=== PATIENT | female | born 1945 | race Caucasian/White ===

== ENCOUNTER → 2017-10-24 09:18 | Outpatient (CLI) | payer MEDICARE, BC, SELFPAY ==
[2017-10-24 10:29] LABS: Basophils % 0.4 % (0.1-2.0); Eosinophils # 0.3 K/mm3 (0.0-0.4); Eosinophils % 5.8 % (0.1-12.0); Hematocrit 32.9 % (37.0-47.0); Hemoglobin 10.7 g/dL (12.2-16.2); Lymphocytes # 1.4 K/mm3 (0.7-4.5); Lymphocytes % 28.7 K/mm3 (10-50); Mean Corpuscular HGB Conc 32.5 g/dL (31.8-35.4); Mean Corpuscular Volume 82.8 fl (81-99); Mean Platelet Volume 6.9 fl (7.4-10.4); Monocytes # 0.2 K/mm3 (0.1-1.0); Monocytes % 4.5 % (1.7-9.3); Neutrophils # 2.9 K/mm3 (1.8-7.8); Neutrophils % 60.6 % (37.0-80.0); Platelet Count 309 K/mm3 (142-424); Red Blood Count 3.97 M/mm3 (4.20-5.40); Red Cell Distribution Width 14.4 % (11.5-17.5); White Blood Count 4.8 K/mm3 (4.8-10.8)
[2017-10-24 10:50] LABS: Alanine Aminotransferase 28 U/L (12-78); Albumin Level 3.3 gm/dL (3.4-5.0); Albumin/Globulin Ratio 0.9 (1.1-1.8); Alkaline Phosphatase 97 U/L (46-116); Anion Gap 11.9 mEq/L (5-15); Aspartate Amino Transferase 14 U/L (15-37); Bilirubin,Total 0.3 mg/dL (0.2-1.0); Blood Urea Nitrogen 20 mg/dL (7-18); Calcium 9.6 mg/dL (8.5-10.1); Carbon Dioxide 28 mmol/L (21.0-32.0); Chloride 104 mmol/L (98-107); Chol/HDL Ratio 2.3 (1-3.5); Cholesterol 132 mg/dL (140-200); Creatinine,Serum 1.04 mg/dL (0.55-1.02); Estimated Glomerular Filt Rate 52 ml/min (>60); GFR (African American) 63 ML/MIN (>60); Globulin 3.6 gm/dl (1.3-3.2); Glucose 121 mg/dL (74-106); HDL Cholesterol 58 mg/dL (29-89); LDL Cholesterol 58 mg/dL (0-130); Magnesium 1.7 mg/dL (1.4-2.2); Potassium 4.9 mmoL/L (3.5-5.1); Sodium 139 mmol/L (136-145); Total Protein,Serum 6.9 gm/dL (6.4-8.2); Triglycerides 82 mg/dL (30-200); VLDL Cholesterol 16 mg/dL (0-40)
[2017-10-24 11:06] LABS: Thyroid Stimulating Hormone < 0.01 uIU/ml (0.358-3.740)
--- NOTE | 2017-10-24 11:28 | CT_ITS ---
CT abdomen pelvis w con CLINICAL INDICATION: Left lower quadrant pain, diarrhea, hematuria ITS.REASON: LLQ PAIN, DIARRHEA ORDERING PHYSICIAN: Lilly Cuellar PATIENT AGE: 71 years COMPARISON: None TECHNIQUE: Axial images obtained with sagittal and coronal reformats. All CT scans at the facility use one or more dose reduction, viz: automated exposure control, ma/kV adjustment per patient size (including targeted exams where dose is matched to indication, i.e. head), or iterative reconstruction technique. PROCEDURE: Oral Contrast: Redicat IV Contrast: 75 mL's of Isovue-370. FINDINGS: The lung bases are clear. Small calcific density is present in the left hepatic lobe segment 4. The liver is otherwise unremarkable. There is a gallstone present at 9 mm. No biliary dilatation. The spleen, adrenal glands, and pancreas are unremarkable. There is severe right-sided hydronephrosis secondary to UPJ obstruction.. There is severe cortical thinning of the right kidney on the right greater along its inferior aspect. Contrast is excreted from the right kidney however. Minimal prominence of the left renal pelvis. No ureteral or renal calculi. There is diffuse diverticulosis of the entire colon. There is minimal stranding of the pericolic fat in the left lower quadrant around a small thickened area of sigmoid colon consistent with mild acute diverticulitis. No evidence of abscess or perforation. Prior appendectomy. No obstruction or free air. No pelvic mass or abnormal fluid collection. IMPRESSION: 1. Acute noncomplicated diverticulitis of the sigmoid colon. There is focal bowel wall thickening with mild stranding of the pericolic fat in this region. Follow-up is recommended as neoplasm could have a similar appearance. 2. Pancolonic diverticulosis. 3. Severe right hydronephrosis secondary to UPJ obstruction.
[2017-10-25 18:42] LABS: Vitamin B12 641 pg/mL (232-1245)
== END ==
PROVIDERS: PCP Physician Assistant; Visit Provider Physician Assistant
DX: R10.32 Left lower quadrant pain (principal); R19.7 Diarrhea, unspecified; E03.9 Hypothyroidism, unspecified; E78.5 Hyperlipidemia, unspecified; R53.83 Other fatigue; E83.42 Hypomagnesemia
CPT/HCPCS: 36415; 74177; 80053; 80061; 82607; 83735; 84439; 84443; 85025; Q9967

== ENCOUNTER → 2017-10-30 07:54 | Outpatient (CLI) | payer MEDICARE, BC, SELFPAY ==
--- NOTE | 2017-10-30 08:17 | CT_ITS ---
CT angio head INDICATION: Severe headache ITS.REASON: HEADACHE, ABNORMAL MRI ORDERING PHYSICIAN: Eliza Daley MD PATIENT AGE: 71 years COMPARISON: 08/27/2017 TECHNIQUE: Axial images are obtained following the bolus administration 100 mL's of Isovue-370 contrast. Sagittal, coronal, and 3-D no free air or reformatted images are reviewed as well. All CT scans at the facility use one or more dose reduction, viz: automated exposure control, ma/kV adjustment per patient size (including targeted exams where dose is matched to indication, i.e. head), or iterative reconstruction technique. FINDINGS: No aneurysm, arteriovenous malformation, or major intracranial occlusive process evident. There is a persistent origin of the right posterior cerebral artery as a normal variant. The right vertebral artery is dominant. No enhancing lesions evident. Delayed images show no evidence of sinus thrombosis IMPRESSION: Negative CTA of the brain Incidental note made of persistent origin of the right posterior cerebral artery is a normal variant
== END ==
PROVIDERS: PCP Physician Assistant; Visit Provider Specialist
DX: R51 Headache (principal); R93.0 Abnormal findings on diagnostic imaging of skull and head, not elsewhere classified
CPT/HCPCS: 70496; Q9967

== ENCOUNTER → 2021-11-08 10:03 | Outpatient (CLI) | payer MEDICARE, OTHER, SELFPAY ==
--- NOTE | 2021-11-08 11:15 | PC.NURSE ---
PFT and 6 Minute Walk Test completed without incident. Albuterol 0.083% given via HHN, per written protocol, Pt tolerated tx well.
--- NOTE | 2021-11-08 11:27 | XR_ITS ---
FINAL REPORT CLINICAL HISTORY: chronic cough COMPARISON: January 17, 2019 FINDINGS: Two views of the chest were obtained. The heart size and pulmonary vascularity are within normal limits. The mediastinum is normal. No acute pulmonary abnormality is identified. There is no pneumothorax. The bony thorax is intact. IMPRESSION: No active cardiopulmonary disease. Reviewed, Interpreted and Dictated by Colton Escoto III, MD Transcribed by Torrey Martinez Authenticated and [facility]
== END ==
PROVIDERS: PCP Nurse Practitioner Family; Visit Provider Internal Medicine Pulmonary Disease
DX: R06.02 Shortness of breath (principal)
CPT/HCPCS: 71046; 94060; 94618; 94726; 94729

== ENCOUNTER 2022-12-30 10:37 | Emergency (ER) | payer MEDICARE, OTHER, SELFPAY ==
--- NOTE | 2022-12-30 10:37 | ECG_ITS ---
APPROVED REPORT Exam: Resting ECG HR:60 bpm ECG Measurements Heart Rate 60 AXES LA 181 P 72 QRSd 105 QRS -21 QT 389 T 56 QTc 389 Conclusion SINUS RHYTHM BORDERLINE LEFT AXIS DEVIATION [QRS AXIS < -20] INCOMPLETE RIGHT BUNDLE BRANCH BLOCK [90+ ms QRS DURATION, TERMINAL R IN V1/V2, 40+ ms S IN I/aVL/V4/V5/V6] BORDERLINE ECG UNCONFIRMED REPORT Electronically signed by : Gennaro Kathleen MD 12/31/2022 14:48:34
[2022-12-30 10:40] VITALS: BP 191/89; PULSE 63; RESP 18; TEMP 36.7; O2SAT 96; BMI 39.8
--- NOTE | 2022-12-30 10:43 | XR_ITS ---
FINAL REPORT TECHNIQUE: Single view chest CLINICAL HISTORY: 4d of chest pain to L shouler and jaw COMPARISON: 11/08/2021 FINDINGS: A single view of the chest was obtained. The heart and mediastinum are within normal limits. The lungs are clear. There is no pneumothorax. Osseous structures are unremarkable. IMPRESSION: No acute cardiopulmonary process. Reviewed, Interpreted and Dictated by Colton Escoto III, MD Transcribed by Leana Cota Authenticated and [facility]
[2022-12-30 11:01] VITALS: BP 198/74; PULSE 55; RESP 20; O2SAT 95
[2022-12-30 11:09] LABS: Chloride 97 mmol/L (98-107)
[2022-12-30 11:10] LABS: Potassium 4.1 mmoL/L (3.5-5.1); Sodium 130 mmol/L (136-145)
--- NOTE | 2022-12-30 11:11 | HMH.EDGENADL ---
Discharge Plan Disposition Patient Disposition: Home, Self-Care Chief Complaint: Chest Pain Prescriptions Prescriptions: No Action cetirizine [Zyrtec] 10 mg capsule 10 mg PO DAILY sertraline 50 mg tablet 50 mg PO DAILY methimazole 5 mg tablet 5 mg PO TID bisoprolol fumarate 10 mg tablet 10 mg PO DAILY amlodipine 5 mg tablet 5 mg PO DAILY acetaminophen 500 mg capsule 500 mg PO Q6H PRN fluticasone propionate [Flonase Allergy Relief] 50 mcg/actuation spray,suspension 1 spray NS BID Qty: 16 2RF Rx Instructions: administer into each nostril azelastine 137 mcg (0.1 %) aerosol,spray 1 spray NS BID Qty: 30 3RF Rx Instructions: administer into each nostril promethazine 25 MG tablet 25 mg PO QIDP PRN (Reason: Nausea And Vomiting) Qty: 10 0RF Referrals Follow up/Referrals: Katya Disla APRN [Primary Care Provider] - See instructions Liang Gutierrez MD [Staff Physician] - See instructions Activity Restrictions/Add. Instructions Additional Instructions/Restrictions: Call your family doctor to establish care for this visit to the emergency department and schedule follow-up within 48 hours to ensure improvement. If you have any worsening of your condition or any other concerning signs or symptoms, return to the emergency department or your primary care doctor for further evaluation. Follow-up with cardiology as well. Clinical Impressions Clinical Impression: Chest pain Discharge ED Provider: Karthikeyan Villanueva General Adult HPI General Chief complaint: Chest Pain Stated complaint: chest pain Time Seen by Provider: 12/30/22 10:42 Mode of Arrival: Ambulatory Source of Information: Patient Limitations: No Limitations Description of Symptoms (Recalled from ER Triage Doc. by RN): Patient reports being nervous, shaky and chest pain for 4-5 days. States it got worse today and has been hurting in both breasts, her back, left arm and jaw. States she has taken 3 aspirin and it helped with her pain. History of Present Illness HPI narrative: 77-year-old female history of hypertension, hyperlipidemia, anxiety, atypical chest pain with normal stress test presenting with chest pain. Patient states that started for 5 days prior to arrival. Today, hurting around both breasts, through her chest, radiates to her back and left side of her jaw associated with numbness in her jaw. Took 3 aspirin, which relieved the pain, then came to the emergency department. Not currently having pain on arrival. Patient states that she had diaphoresis and nausea without vomiting. Denies shortness of breath, fevers or chills, urinary symptoms, or any other concerns. Related Data Home Medications Medication Instructions Recorded Confirmed cetirizine 10 mg capsule (Zyrtec) 10 mg PO DAILY allergies 10/20/17 11/08/21 sertraline 50 mg tablet 50 mg PO DAILY Anxiety 10/20/17 11/08/21 methimazole 5 mg tablet 5 mg PO TID thyroid 11/17/17 11/08/21 acetaminophen 500 mg capsule 500 mg PO Q6H PRN 10/05/21 11/08/21 amlodipine 5 mg tablet 5 mg PO DAILY 10/05/21 11/08/21 bisoprolol fumarate 10 mg tablet 10 mg PO DAILY 10/05/21 11/08/21 Previous Rx's Medication Instructions Recorded promethazine 25 mg tablet 25 mg PO QIDP PRN Nausea And 03/26/18 Vomiting #10 tabs azelastine 137 mcg (0.1 %) nasal 1 spray intranasal BID #30 mL 10/08/21 spray aerosol fluticasone propionate 50 1 spray intranasal BID #16 grams 10/08/21 mcg/actuation nasal spray,suspension (Flonase Allergy Relief) Allergies Allergy/AdvReac Type Severity Reaction Status Date / Time No Known Allergies Allergy Verified 11/08/21 13:02 [facility] Disclaimer: The information contained in this section may have been updated after the patient was seen, as this information can be updated by other users. Medical History (Updated 12/30/22 @ 14:07 by Karthikeyan Villnaueva MD) Allergic rhinitis, unspecified Chronic cough Cough
[2022-12-30 11:12] LABS: Alanine Aminotransferase 33 U/L (12-78); Albumin Level 4.4 g/dl (3.5-5.0); Albumin/Globulin Ratio 1.4 (1.1-1.8); Alkaline Phosphatase 67 U/L (38-126); Anion Gap 14.1 mEq/L (5-15); Aspartate Amino Transferase 28 U/L (14-36); Bilirubin,Total 0.6 mg/dl (0.2-1.3); Blood Urea Nitrogen 29 mg/dl (7-17); Carbon Dioxide 23 mmol/L (22.0-30.0); Creatinine Clearance Estimated 63 mL/min (50-200); Estimated Glomerular Filt Rate 44 ml/min (>60); GFR (African American) 53 ML/MIN (>60); Globulin 3.2 g/dL (1.3-3.2); Total Protein,Serum 7.6 g/dl (6.3-8.2)
[2022-12-30 11:13] LABS: Chol/HDL Ratio 2.8 (1-3.5); Cholesterol 228 mg/dl (140-200); Glucose 227 mg/dl (74-100); HDL Cholesterol 82 mg/dl (40-60); Triglycerides 241 mg/dl (30-150); VLDL Cholesterol 48 mg/dL (0-40)
[2022-12-30 11:14] LABS: Basophils % 0.1 % (0.1-2.0); Eosinophils % 0.3 % (0.1-12.0); Hematocrit 37.6 % (37.0-47.0); Hemoglobin 13.1 g/dL (12.2-16.2); Lymphocytes # 1.2 K/mm3 (0.7-4.5); Lymphocytes % 13.6 % (10-50); Mean Corpuscular Hemoglobin 31.6 pg (27.0-31.2); Mean Corpuscular Volume 90.3 fl (81-99); Mean Platelet Volume 7.7 fl (7.4-10.4); Monocytes # 0.4 K/mm3 (0.1-1.0); Monocytes % 4.9 % (1.7-9.3); Neutrophils % 81.1 % (37.0-80.0); Platelet Count 334 K/mm3 (142-424); Red Blood Count 4.16 M/mm3 (4.20-5.40); Red Cell Distribution Width 14.8 % (11.5-17.5); White Blood Count 8.7 K/mm3 (4.8-10.8)
[2022-12-30 11:24] LABS: NT Pro Brain Natriuretic Pep. 382 pg/mL (0-450)
[2022-12-30 11:28] LABS: Troponin I < 0.01 ng/ml (0.00-0.034)
[2022-12-30 11:31] VITALS: BP 203/74; PULSE 53; RESP 16; O2SAT 96
[2022-12-30 11:46] LABS: Direct LDL Cholesterol 102.01 mg/dL (100-129)
--- NOTE | 2022-12-30 12:00 | PC.NURSE ---
Rounded on pt. Updated on expected wait times. No needs voiced. Call light within reach.
[2022-12-30 12:01] VITALS: BP 228/82; PULSE 56; RESP 18; O2SAT 97
[2022-12-30 12:30] LABS: Hemoglobin A1C 6.5 % (4.0-6.0)
--- NOTE | 2022-12-30 12:33 | PC.NURSE ---
Pt advised that she did not want the blood pressure cuff on her arm any longer because It is squeezing too tight, and has busted the blood vessels in my arm causing my blood pressure to be high MD made aware
[2022-12-30 13:29] LABS: Troponin I < 0.01 ng/ml (0.00-0.034)
--- NOTE | 2022-12-30 14:28 | PC.NURSE ---
Dr. Villanueva at [facility] to update pt on results and POC
[2022-12-30 14:30] VITALS: BP 180/87; PULSE 59; RESP 20; TEMP 36.7; O2SAT 96
== END 2022-12-30 14:53 | disposition home or self-care (01) ==
PROVIDERS: Emergency Provider Emergency Medicine; PCP Nurse Practitioner
DX: R07.9 Chest pain, unspecified (principal)
CPT/HCPCS: 71045; 80053; 80061; 83036; 83880; 84484; 85025; 93005; 99285

== ENCOUNTER → 2023-01-13 08:30 | Outpatient (CLI) | payer MEDICARE, OTHER, SELFPAY ==
--- NOTE | 2023-01-13 08:34 | US_ITS ---
FINAL REPORT TECHNIQUE: Sonographic images of the right upper quadrant were obtained. CLINICAL HISTORY: GALLBLADDER COMPARISON: None FINDINGS: PANCREAS: Unremarkable. LIVER: Homogeneous. No focal hepatic lesion. No intrahepatic biliary ductal dilatation. GALLBLADDER: Gallstones and thick sludge is present in the gallbladder.. No gallbladder wall thickening or pericholecystic fluid. COMMON DUCT: 6 mm. Normal for age. RIGHT KIDNEY: There is a cystic lesion in the right renal fossa, that may represent a kidney with longstanding severe hydronephrosis. Correlation with CT might be helpful if clinically indicated. . FREE FLUID: None. IMPRESSION: Cystic lesion in the right renal fossa without a well-defined kidney seen. This may represent a kidney with severe longstanding hydronephrosis. Would recommend CT follow-up for further evaluation as clinically indicated. Gallstones and a large focus of sludge are present in the gallbladder. Reviewed, Interpreted and Dictated by Britney Lozano MD Transcribed by Luiza Pepe Authenticated and [facility]
== END ==
PROVIDERS: PCP Nurse Practitioner; Visit Provider Nurse Practitioner
DX: R10.11 Right upper quadrant pain (principal)
CPT/HCPCS: 76705

== ENCOUNTER → 2023-02-11 10:43 | Outpatient (CLI) | payer MEDICARE, OTHER, SELFPAY ==
--- NOTE | 2023-02-11 10:43 | MR_ITS ---
FINAL REPORT CLINICAL HISTORY: pain lt head,ice pick stabbing pain COMPARISON: August 2017 FINDINGS: Multiplanar MR imaging of the brain was performed without contrast. There is age-appropriate atrophy. There are multiple foci of abnormal T2 signal in the cerebral white matter consistent with moderate chronic ischemic/gliotic change, worse from prior. There is chronic ischemic change in the cleopatra. There is no evidence of intracranial hemorrhage or mass. The ventricular size is normal. There is no evidence of shift of the midline structures. No abnormal extra-axial fluid collection is identified. The posterior fossa and brainstem have an unremarkable appearance. No area of abnormal restricted diffusion is identified. Normal major vessel vascular flow voids are seen. IMPRESSION: Worsening chronic changes. No acute intracranial abnormality. Reviewed, Interpreted and Dictated by Colton Escoto III, MD Transcribed by Torrey Martinez Authenticated and [facility]
== END ==
PROVIDERS: PCP Nurse Practitioner; Visit Provider Specialist
DX: R51.9 Headache, unspecified (principal)
CPT/HCPCS: 70551

== ENCOUNTER 2023-05-23 15:40 | Emergency (ER) | payer MEDICARE, OTHER, SELFPAY ==
[2023-05-23] VITALS (8 sets, daily range): BP systolic 127–154; BP diastolic 54–86; PULSE 80–101; RESP 18; TEMP 36.6–37; O2SAT 95–99; BMI 38.9
--- NOTE | 2023-05-23 15:49 | XR_ITS ---
FINAL REPORT CLINICAL HISTORY: weakness, vomiting COMPARISON: 12/30/2022 FINDINGS: SINGLE-VIEW CHEST The heart size is normal. The mediastinum is normal. There is mild right base atelectasis or scar. There is no pneumothorax. IMPRESSION: Mild right base atelectasis versus scar. Reviewed, Interpreted and Dictated by Colton Escoto III, MD Transcribed by Estephanie Michel Authenticated and [facility]
--- NOTE | 2023-05-23 15:57 | ECG_ITS ---
APPROVED REPORT Exam: Resting ECG HR:104 bpm ECG Measurements Heart Rate 104 AXES AR 163 P 60 QRSd 92 QRS -39 QT 318 T 54 QTc 379 Conclusion SINUS TACHYCARDIA INFERIOR MYOCARDIAL INFARCTION , OF INDETERMINATE AGE [40+ ms Q WAVE AND/OR ST/T ABNORMALITY IN II/aVF] Electronically signed by : LULA CARMONA, 05/23/2023 23:56:21
--- NOTE | 2023-05-23 16:05 | ED_ITS ---
Discharge Plan Disposition Patient Disposition: Home, Self-Care Prescriptions Prescriptions: New cefdinir 300 mg capsule 300 mg PO BID 10 Days Qty: 20 0RF ondansetron 4 mg tablet,disintegrating 4 mg PO Q6H PRN (Reason: nausea and vomiting) Qty: 12 0RF No Action sertraline 50 mg tablet 50 mg PO DAILY Zyrtec 10 mg capsule 10 mg PO DAILY PRN (Reason: allergies) omeprazole 20 mg capsule,delayed release(DR/EC) 20 mg PO DAILY losartan 25 mg tablet 25 mg PO DAILY Patient Comments: TAKE 1 TABLET BY MOUTH ONCE DAILY bisoprolol fumarate 10 mg tablet 10 mg PO DAILY acetaminophen 500 mg capsule 500 mg PO Q6H PRN Referrals Follow up/Referrals: Katya Disla APRN [Primary Care Provider] - See instructions Activity Restrictions/Add. Instructions Additional Instructions/Restrictions: Call your family doctor to establish care for this visit to the emergency department and schedule follow-up within 48 hours to ensure improvement. If you have any worsening of your condition or any other concerning signs or symptoms, return to the emergency department or your primary care doctor for further evaluation. Cefdinir twice daily for 10 days Clinical Impressions Clinical Impression: Pyelonephritis, Weakness, Nausea, vomiting and diarrhea, TERRELL (acute kidney injury) Instructions Patient Instructions: DI for Diarrhea and Traveler's Diarrhea -- Adult, DI for Diarrhea and Traveler's Diarrhea -- Child, DI for Nausea -- Adult, DI for Nausea -- Child Discharge ED Provider: Karthikeyan Villanueva General Adult HPI General Chief complaint: Nausea/Vomiting/Diarrhea Stated complaint: Vomiting,diarrhea,right flank pain,weakness Time Seen by Provider: 05/23/23 15:42 History of Present Illness HPI narrative: This is a 7-year-old female with history of chronic lower extremity swelling, chronic cough, recurrent nephrolithiasis resulting in right renal failure, cholelithiasis without cholecystitis presenting with vomiting and diarrhea. Patient states that she started having vomiting and diarrhea 5 days prior to this visit. Today, 05/22, patient and state the patient was so weak that she could barely roll over in bed and would just largely moan. Vomiting and diarrhea associated with right-sided flank pain radiating to her right groin. Denies confusion, altered mental status, but patient feels so weak she feels unable to ambulate safely at home. Diarrhea is nonbloody, non-mucousy. Vomiting is associated and this is nonbloody, nonbilious. She states that over the past few weeks, she is also passed 2 kidney stones. Not currently having any dysuria or hematuria, fevers or chills. Related Data Home Medications Medication Instructions Recorded Confirmed sertraline 50 mg tablet 50 mg PO DAILY Anxiety 10/20/17 02/25/23 acetaminophen 500 mg capsule 500 mg PO Q6H PRN 10/05/21 02/25/23 bisoprolol fumarate 10 mg tablet 10 mg PO DAILY 10/05/21 02/25/23 losartan 25 mg tablet 25 mg PO DAILY 02/11/23 02/25/23 omeprazole 20 mg capsule,delayed 20 mg PO DAILY 02/11/23 02/25/23 release cetirizine 10 mg capsule (Zyrtec) 10 mg PO DAILY PRN allergies 02/25/23 02/25/23 Previous Rx's Medication Instructions Recorded cefdinir 300 mg capsule 300 mg PO BID 10 days #20 caps 05/23/23 ondansetron 4 mg disintegrating 4 mg PO Q6H PRN nausea and 05/23/23 tablet vomiting #12 tabs Allergies Allergy/AdvReac Type Severity Reaction Status Date / Time No Known Allergies Allergy Verified 02/25/23 08:23 [facility] Disclaimer: The information contained in this section may have been updated after the patient was seen, as this information can be updated by other users. Medical History Allergic rhinitis, unspecified Chronic cough Cough Family history of asthma Wheezing without diagnosis of asthma Surgical History History of tubal ligation Family History Other Diabetes Social History Smoking Status: Former smoker alcohol intake: never counseling provided: none substance use type: denies use current occupational status: retired Travel in the last 8 weeks: None household members: spouse housing: house marital status: ROS Obtained: Yes All systems reviewed & no additional complaints except as documented Physical Exam General General appearance: alert, in no apparent distress and obese Head Head exam: atraumatic and normocephalic Eye Eye exam: Present normal appearance, PERRL and EOMI ENT ENT exam: Present mucous membranes moist Neck Neck exam: Present normal inspection, full ROM and trachea midline Respiratory Respiratory exam: Present normal lung sounds bilaterally; Absent respiratory distress, wheezes, stridor, accessory muscle use or prolonged expiratory phase Cardiovascular Cardiovascular exam: Present normal rhythm and tachycardia Abdominal Exam Abdominal exam: Present soft and tenderness; Absent distention, guarding, rebound or rigidity Abdominal tenderness: Present RUQ, RLQ, suprapubic and mild Extremities Exam Extremities exam: Present edema Neurological Exam Neurological exam: Present alert, oriented X3, CN II-XII intact and normal gait; Absent motor sensory deficit Skin Skin exam: Present warm and dry; Absent diaphoresis or erythema Medical Decision Making Medical Records Medical records reviewed: Yes I reviewed the patient's medical records. Elías Inquiry Pt receiving controlled substance: No Elías was queried for this patient: No Vital Signs: 05/23/23 15:42 05/23/23 16:30 05/23/23 18:00 Temperature 98.6 F Temperature Source Oral Pulse Rate 93 H 94 H Pulse Rate [Right] 101 H Respiratory Rate 18 Blood Pressure 127/54 L 146/77 H Blood Pressure [Right Arm] 136/86 Blood Pressure Mean [Right Arm] 102 Blood Pressure Source [Right Arm] Automatic Cuff 02 Sat by Pulse Oximetry 96 96 97 Oxygen Delivery Method Nasal Cannula Oxygen Flow Rate (LPM) 2 05/23/23 18:15 05/23/23 18:30 Temperature Temperature Source Pulse Rate 84 87 Pulse Rate [Right] Respiratory Rate Blood Pressure Blood Pressure [Right Arm] Blood Pressure Mean [Right Arm] Blood Pressure Source [Right Arm] 02 Sat by Pulse Oximetry 95 95 Oxygen Delivery Method Oxygen Flow Rate (LPM) Lab Data Lab Results 05/23/23 15:50: WBC 6.8, RBC 4.15 L, Hgb 12.6, Hct 38.5, MCV 92.7, MCH 30.3, MCHC 32.7, RDW 14.2, Plt Count 283, MPV 8.1, Neut % (Auto) 70.9, Lymph % (Auto) 21.2, [place] % (Auto) 6.8, Eos % (Auto) 0.7, Baso % (Auto) 0.4, Neut # (Auto) 4.9, Lymph # (Auto) 1.5, [place] # (Auto) 0.5, Eos # (Auto) 0.1, Baso # (Auto) 0.0, S odium 131 L, Potassium 3.9, Chloride 98, Carbon Dioxide 27, Anion Gap 9.9, BUN 23 H, Creatinine 1.20 H, Estimated Creat Clear 62, Estimated GFR 44 L, Est GFR ( Amer) 53 L, Glucose 128 H, Calcium 9.2, Magnesium 1.7, Total Bilirubin 1.1, AST 26, ALT 19, Alkaline Phosphatase 62, Troponin I < 0.01, NT-Pro-B Natriuret Pep 491 H, Total Protein 7.1, Albumin 4.1, Globulin 3.0, Albumin/Globulin Ratio 1.4, Lipase 36 05/23/23 18:53: Urine Color Yellow, Urine Appearance Clear, Urine pH 6.0, Ur Specific [place] 1.015, Urine Protein 3+, Urine Glucose (UA) Trace, Urine Ketones Negative, Urine Blood 3+, Urine Nitrate Negative, Urine Bilirubin 1+ A, Urine Urobilinogen 2.0, Ur Leukocyte Esterase 1+ A, Urine RBC 20-50, Urine WBC 10-20, Ur Squamous Epith Cells Occasional, Urine Bacteria None 05/23/23 19:20: Troponin I < 0.01 05/23/23 15:50 05/23/23 15:50 Orders (Tests/Meds): ED MEDICATIONS Discontinued Medications Generic Name Dose Route Start Last Admin Trade Name Freq PRN Reason Stop Dose Admin Lactated Ringer's 1,000 mls @ 999 mls/hr 05/23/23 17:55 05/23/23 17:59 Lactated Ringer's 1000 Ml Bag IV 05/23/23 18:55 999 mls/hr .Q1H1M ONE Administration Ceftriaxone Sodium 1 gm/ 50 mls @ 100 mls/hr 05/23/23 19:17 05/23/23 19:26 Sodium Chloride IV 05/23/23 19:46 100 mls/hr ONCE ONE Administration Iopamidol 75 ml 05/23/23 17:00 05/23/23 17:01 Iopamidol-370 (76%);100ml Bottle IV 05/23/23 17:01 75 ml ONCE ONE Administration Ondansetron HCl 4 mg 05/23/23 16:03 05/23/23 16:26 Ondansetron 4mg/2ml Vial IV 05/23/23 16:04 4 mg ONCE ONE Administration Sodium Chloride 10 ml 05/23/23 17:00 05/23/23 17:01 Sodium Chloride 0.9% 10ml Syr (Rad Only) IV 05/23/23 17:01 10 ml ONCE ONE Administration ORDERS Category Date Time Status CT abdomen pelvis w con Stat Cat Scan 05/23/23 16:49 Completed CXR --portable [XR chest portable] Stat Exams 05/23/23 15:49 Completed POCUS Point of Care (ER Only) Stat Exams 05/23/23 18:09 Completed Brain Natriuretic Peptide Stat Lab 05/23/23 15:50 Completed CBC w/Auto Diff [Complete Blood Count Auto Diff] Stat Lab 05/23/23 15:50 Completed CMP [Comprehensive Metabolic Panel] Stat Lab 05/23/23 15:50 Completed Diarrhea 6-11 Panel, Cdiff PCR Stat Lab 05/23/23 16:03 Ordered Lipase Stat Lab 05/23/23 15:50 Completed Magnesium Stat Lab 05/23/23 15:50 Completed Trop I [Troponin I] Stat Lab 05/23/23 15:50 Completed Troponin I Q3H Lab 05/23/23 19:20 Completed Troponin I Q3H Lab 05/23/23 22:00 Ordered UA [Urinalysis and Microscopic] Stat Lab 05/23/23 18:53 Completed Urine Culture Stat Micro 05/23/23 18:53 Received Medical Decision Narrative: This is a 7-year-old female with history of chronic lower extremity swelling, chronic cough, recurrent nephrolithiasis resulting in right renal failure, cholelithiasis without cholecystitis presenting with vomiting and diarrhea. Patient states that she started having vomiting and diarrhea 5 days prior to this visit. Today, 05/22, patient and state the patient was so weak that she could barely roll over in bed and would just largely moan. Vomiting and diarrhea associated with right-sided flank pain radiating to her right groin. Denies confusion, altered mental status, but patient feels so weak she feels unable to ambulate safely at home. Diarrhea is nonbloody, non-mucousy. Vomiting is associated and this is nonbloody, nonbilious. She states that over the past few weeks, she is also passed 2 kidney stones. Not currently having any dysuria or hematuria, fevers or chills. History was obtained via conversation with patient and . On arrival, patient hemodynamically stable, alert, oriented x4, appropriate, GCS 15, moving all extremities spontaneously, pupils equal and reactive to light. Full physical exam performed and significant for weak appearing woman in no acute distress. Mildly tachycardic, normotensive. Afebrile. Patient requiring 2 L nasal cannula. Lungs are clear to auscultation, nonpitting lower extremity edema. Cardiac exam normal. Differential includes gastroenteritis, enteritis, diverticulitis, UTI, pyelonephritis, PUD, perinephric abscess, aortic pathology, mesenteric pathology, among others. Patient was given fluids, Zofran for symptomatic management and correction of underlying abnormalities. Workup independently interpreted and significant for nonactionable CBC. Chemistry with creatinine 1.2 up from normal baseline. LFTs normal. Delta troponin negative, BNP nonactionable. Urinalysis with concern for UTI. Chest x-ray without acute concern for cardiopulmonary or airspace disease. See radiology read for full review of final results. Bedside ultrasound with gallstones without secondary signs of cholecystitis. Independent interpretation of EKG shows sinus tachycardia [address] or T wave changes concerning for acute ischemia. Patient has normal QR, QRS, QT intervals. Poor R wave progression in the precordial leads. Patient has Q waves in inferior leads without ST deviations likely from old HI. Leftward axis. On reevaluation, patient resting comfortably in bed feeling much better. given patient presentation, workup, history, this most likely represents dehydration in the setting of vomiting and diarrheal syndrome with associated UTI. Because patient at baseline without signs or symptoms of clinical decompensation, deemed appropriate for discharge. Results were relayed to patient who voiced understanding and were agreeable to outpatient management and follow up. At the time of discharge the patient was hemodynamically stable, tolerating PO, and mobilizing appropriately. Procedures Limited Ultrasound Indication:: Limited RUQ ultrasound Indication: Abdominal pain, history of stones Identified structures: -Gallbladder -Gallbladder wall -Common bile duct -Liver Findings: Sonographic [place] sign: Absent Gallstones: Present Sludge: Absent Pericholecystic fluid: Absent Maximal GB wall thickness (mm) (normal is </= 3mm): Normal Common bile duct width (mm) (normal is </= 6mm): Normal Gallbladder width (cm) (normal is < 4cm): Normal Gallbladder length (cm) (normal is < 10cm): Normal Impression: Cholelithiasis without cholecystitis Images were saved to permanent archive The study was technically adequate CPT 31850-85 This study was performed by me, and I personally interpreted all images/videos. Based on my clinical judgement, these images were adequate and did not necessitate further imaging. Critical Care Critical Care Time Critical Care Time: No
[2023-05-23 16:19] LABS: Basophils % 0.4 % (0.1-2.0); Eosinophils # 0.1 K/mm3 (0.0-0.4); Eosinophils % 0.7 % (0.1-12.0); Hematocrit 38.5 % (37.0-47.0); Hemoglobin 12.6 g/dL (12.2-16.2); Lymphocytes # 1.5 K/mm3 (0.7-4.5); Lymphocytes % 21.2 % (10-50); Mean Corpuscular HGB Conc 32.7 g/dL (31.8-35.4); Mean Corpuscular Hemoglobin 30.3 pg (27.0-31.2); Mean Corpuscular Volume 92.7 fl (81-99); Mean Platelet Volume 8.1 fl (7.4-10.4); Monocytes # 0.5 K/mm3 (0.1-1.0); Monocytes % 6.8 % (1.7-9.3); Neutrophils # 4.9 K/mm3 (1.8-7.8); Neutrophils % 70.9 % (37.0-80.0); Platelet Count 283 K/mm3 (142-424); Red Blood Count 4.15 M/mm3 (4.20-5.40); Red Cell Distribution Width 14.2 % (11.5-17.5); White Blood Count 6.8 K/mm3 (4.8-10.8)
[2023-05-23 16:25] LABS: Chloride 98 mmol/L (98-107); Potassium 3.9 mmoL/L (3.5-5.1); Sodium 131 mmol/L (136-145)
[2023-05-23] MEDS: ONDANSETRON 4MG/2ML VIAL 4 MG IV (16:26)
[2023-05-23 16:27] LABS: Alanine Aminotransferase 19 U/L (12-78); Alkaline Phosphatase 62 U/L (38-126); Anion Gap 9.9 mEq/L (5-15); Aspartate Amino Transferase 26 U/L (14-36); Bilirubin,Total 1.1 mg/dl (0.2-1.3); Blood Urea Nitrogen 23 mg/dl (7-17); Calcium 9.2 mg/dl (8.4-10.2); Carbon Dioxide 27 mmol/L (22.0-30.0); Creatinine Clearance Estimated 62 mL/min (50-200); Estimated Glomerular Filt Rate 44 ml/min (>60); GFR (African American) 53 ML/MIN (>60); Glucose 128 mg/dl (74-100); Lipase 36 U/L (23-300)
[2023-05-23 16:28] LABS: Albumin Level 4.1 g/dl (3.5-5.0); Albumin/Globulin Ratio 1.4 (1.1-1.8); Magnesium 1.7 mg/dl (1.6-2.3); Total Protein,Serum 7.1 g/dl (6.3-8.2)
[2023-05-23 16:41] LABS: Troponin I < 0.01 ng/ml (0.00-0.034)
--- NOTE | 2023-05-23 16:44 | PC.NURSE ---
patient provided water at this time.
--- NOTE | 2023-05-23 16:49 | CT_ITS ---
PROCEDURE INFORMATION: Exam: CT Abdomen And Pelvis With Contrast Exam date and time: 05/23/2023 4:57 PM Age: 77 years old Clinical indication: Abdominal pain; Flank; Right; Additional info: R flank and rlq/ruq pain TECHNIQUE: Imaging protocol: Computed tomography of the abdomen and pelvis with contrast. Radiation optimization: All CT scans at this facility use at least one of these dose optimization techniques: automated exposure control; mA and/or kV adjustment per patient size (includes targeted exams where dose is matched to clinical indication); or iterative reconstruction. Contrast material: ISOVUE; Contrast volume: 75 ml; Contrast route: IV; COMPARISON: ABDPELW CT abdomen pelvis wo con 07/03/2018 7:43 AM FINDINGS: Liver: Left hepatic lobe calcification. No mass. Gallbladder and bile ducts: Cholelithiasis. No ductal dilation. Pancreas: Atrophic. No ductal dilation. Spleen: Few small calcifications. No splenomegaly. Adrenal glands: Normal. No mass. Kidneys and ureters: Chronic severe right hydronephrosis and mild perinephric stranding. Stable mild prominence of the left renal pelvis. No stones. 1.7 cm right kidney midpole simple appearing cyst. Stomach and bowel: Severe colonic diverticulosis. No obstruction. No mucosal thickening. Appendix: No evidence of appendicitis. Intraperitoneal space: Unremarkable. No free air. No significant fluid collection. Vasculature: Moderate atherosclerosis. No abdominal aortic aneurysm. Lymph nodes: Unremarkable. No enlarged lymph nodes. Urinary bladder: Unremarkable as visualized. Reproductive: Unremarkable as visualized. Bones/joints: Degenerative changes. No acute fracture. Soft tissues: Unremarkable. IMPRESSION: 1. Chronic severe right hydronephrosis and mild perinephric stranding. No urolithiasis. 2. Cholelithiasis. 3. Severe colonic diverticulosis. COMMENTS: Consistent with the [employer]'s Incidental Findings Committee white paper (J Am Radha Radiol 2018): Any incidental renal lesion less than 1 cm or classified as too small to characterize, or any incidental cystic renal lesion characterized as simple-appearing, is likely benign. No follow-up imaging is recommended for these lesions per consensus recommendations based on imaging criteria.
[2023-05-23] MEDS: SODIUM CHLORIDE 0.9% 10ML SYR (RAD ONLY) 10 ML IV (17:01)
[2023-05-23] MEDS: IOPAMIDOL-370 (76%);100ML BOTTLE 75 ML IV (17:01)
[2023-05-23 17:05] LABS: NT Pro Brain Natriuretic Pep. 491 pg/mL (0-450)
--- NOTE | 2023-05-23 17:57 | PC.NURSE ---
PT REFUSE TO KEEP BP CUP ON STATES IT HURTS HER ARM
[2023-05-23] MEDS: LACTATED RINGERS 1000ML 1,000 ML 999 ML IV (17:59)
[2023-05-23 19:02] LABS: Microscopic, Urine URINE MICROSCOPIC (MICROSCOPIC)
[2023-05-23 19:08] LABS: Appearance,Urine CLEAR (Clear); Blood, Urine 3+ (Negative); Color,Urine YELLOW (Yellow); Glucose,Urine (UA) TRACE (Negative); Ketones,Urine Negative (Negative); Leukocyte Esterase,Urine 1+ (Negative); Nitrate,Urine Negative (Negative); Protein,Urine 3+ (Negative); Specific Gravity, Urine 1.015 (1.005-1.030)
[2023-05-23 19:14] LABS: Bilirubin,Urine 1+ (Negative)
[2023-05-23 19:24] LABS: RBC,Urine 20-50 #/hpf (0-3); Squamous Epithelial Cell,Urine Occasional #/hpf (0-5)
[2023-05-23] MEDS: CEFTRIAXONE SODIUM 1 GM in 0.9 % SODIUM CHLORIDE 50 ML IV (19:26)
[2023-05-23 20:04] LABS: Troponin I < 0.01 ng/ml (0.00-0.034)
--- NOTE | 2023-05-27 20:06 | PC.NURSE ---
notified dr pantoja of urine culture result. pt was discharged with cefdinir 300mg bid x 10 days. no new orders
== END 2023-05-23 20:39 | disposition home or self-care (01) ==
PROVIDERS: Emergency Provider Emergency Medicine; PCP Nurse Practitioner
DX: N17.9 Acute kidney failure, unspecified (principal); N12 Tubulo-interstitial nephritis, not specified as acute or chronic; R11.2 Nausea with vomiting, unspecified; R19.7 Diarrhea, unspecified; R53.1 Weakness; Z87.891 Personal history of nicotine dependence
CPT/HCPCS: 36415; 71045; 74177; 80053; 81001; 83690; 83735; 83880; 84484; 85025; 87086; 93005; 96361; 96365; 96375; 99285; J0696; J2405; Q9967

== ENCOUNTER 2024-03-13 13:01 | Emergency (ER) | payer MEDICARE, SELFPAY ==
[2024-03-13 13:03] VITALS: BP 159/53; PULSE 58; RESP 13; TEMP 36.6; O2SAT 96; BMI 36.6
--- NOTE | 2024-03-13 13:26 | XR_ITS ---
PROCEDURE INFORMATION: Exam: XR Right Forearm Exam date and time: 03/13/2024 2:01 PM Age: 78 years old Clinical indication: Injury or trauma; Fall; Blunt trauma (contusions or hematomas); Arm, lower; Right TECHNIQUE: Imaging protocol: Radiologic exam of the right forearm. Views: 2 views. Total images: 2 COMPARISON: No relevant prior studies available. FINDINGS: Bones/joints: No evidence of acute fracture or dislocation. Soft tissues: Soft tissues are within normal limits. IMPRESSION: No evidence of acute fracture or dislocation.
--- NOTE | 2024-03-13 13:28 | HMH.EDGENADL ---
Discharge Plan Disposition Patient Disposition: Home, Self-Care Condition: Good Prescriptions Prescriptions: New cefdinir 300 mg capsule 300 mg PO BID Qty: 20 0RF No Action sertraline 50 mg tablet 50 mg PO DAILY Zyrtec 10 mg capsule 10 mg PO DAILY PRN (Reason: allergies) omeprazole 20 mg capsule,delayed release(DR/EC) 20 mg PO DAILY losartan 25 mg tablet 25 mg PO DAILY Patient Comments: TAKE 1 TABLET BY MOUTH ONCE DAILY bisoprolol fumarate 10 mg tablet 10 mg PO DAILY acetaminophen 500 mg capsule 500 mg PO Q6H PRN cefdinir 300 mg capsule 300 mg PO BID 10 Days Qty: 20 0RF ondansetron 4 mg tablet,disintegrating 4 mg PO Q6H PRN (Reason: nausea and vomiting) Qty: 12 0RF Referrals Follow up/Referrals: Katya Disla APRN [Primary Care Provider] - See instructions Activity Restrictions/Add. Instructions Additional Instructions/Restrictions: Weight bearing as tolerated rest Ice with cold pack for 20 minutes remove may repeat for comfort every hour Follow-up immediately if new or worsening symptoms or no noticeable improvement over the next 3-5 days. Follow-up with PCP Clinical Impressions Clinical Impression: Contusion, UTI (urinary tract infection) Instructions Patient Instructions: DI for Rib Contusion, DI for Urinary Tract Infection (UTI) Print Language Print Language: Wolof Discharge ED Provider: Jordyn Marrero General Adult HPI General Chief complaint: PAIN Stated complaint: AO lower back and side pain Time Seen by Provider: 03/13/24 13:23 Mode of Arrival: Ambulatory Source of Information: Patient and Spouse Limitations: No Limitations Description of Symptoms (Recalled from ER Triage Doc. by RN): pt presents to ED with c/o right sided rib pain. pt reports she slipped on a rug while going to the bathroom this morning. no LOC, pt did not hit head. Related Data Home Medications ?Medication ?Instructions ?Recorded ?Confirmed sertraline 50 mg tablet 50 mg PO DAILY Anxiety 10/20/17 02/25/23 acetaminophen 500 mg capsule 500 mg PO Q6H PRN 10/05/21 02/25/23 bisoprolol fumarate 10 mg tablet 10 mg PO DAILY 10/05/21 02/25/23 losartan 25 mg tablet 25 mg PO DAILY 02/11/23 02/25/23 omeprazole 20 mg capsule,delayed 20 mg PO DAILY 02/11/23 02/25/23 release cetirizine 10 mg capsule (Zyrtec) 10 mg PO DAILY PRN allergies 02/25/23 02/25/23 Previous Rx's ?Medication ?Instructions ?Recorded cefdinir 300 mg capsule 300 mg PO BID 10 days #20 caps 05/23/23 ondansetron 4 mg disintegrating 4 mg PO Q6H PRN nausea and 05/23/23 tablet vomiting #12 tabs cefdinir 300 mg capsule 300 mg PO BID #20 caps 03/13/24 Allergies Allergy/AdvReac Type Severity Reaction Status Date / Time No Known Allergies Allergy Verified 02/25/23 08:23 [facility] Disclaimer: The information contained in this section may have been updated after the patient was seen, as this information can be updated by other users. Medical History , [employer]) Chronic cough Allergic rhinitis, unspecified Wheezing without diagnosis of asthma Family history of asthma Cough Surgical History , [employer]) History of tubal ligation Family History , [employer]) Diabetes Social History , [employer]) Smoking Status: Former smoker alcohol intake: never counseling provided: none substance use type: denies use current occupational status: retired Travel in the last 8 weeks: None household members: spouse housing: house marital status: Have you lived/traveled outside [place] in past 30 days?: No Contact w/someone who lives/traveled outside [place] past 30 days?: No Exposure to someone with infectious disease in past 14 days?: No Do you have a fever (greater than 100.4 F or 38 C)?: No Have you tested positive for COVID-19: No Exposed to someone with COVID-19 in past 14 days?: No Do you have a sore throat?: No Do you have a cough?: No Do you have any weakness?: No Do you have any diarrhea?: No Are you experiencing any unusual bleeding?: No Do you have any muscle aches/pain?: Yes Do you have any abdominal pain?: No Are you experiencing loss of taste or smell?: No Other Medical History Have you received the Flu Vaccine for this season: Yes Have you received the Pneumonia Vaccine: Yes ROS Obtained: Yes Systems reviewed as appropriate & no additional complaints except as documented Physical Exam General General appearance: alert and in no apparent distress Eye Eye exam: Present normal appearance ENT ENT exam: Present normal exam Neck Neck exam: Present normal inspection and full ROM Chest Chest inspection: Present normal inspection and symmetric chest wall rise Respiratory Respiratory exam: Present normal lung sounds bilaterally Cardiovascular Cardiovascular exam: Present regular rate and normal rhythm Abdominal Exam Abdominal exam: Present soft and normal bowel sounds Extremities Exam Extremities exam: Present normal inspection and full ROM Expanded Upper Extremity Exam Right: Forearm/Wrist exam: Present normal inspection, full ROM and tenderness L/R Arms Top View: 1. scratch/abrasion Vascular exam: Normal capillary refill Neurological Exam Neurological exam: Present alert and oriented X3 Skin Skin exam: Present warm and intact Medical Decision Making Medical Records Medical records reviewed: Yes I reviewed the patient's medical records. Screening: Per USPSTF and CDC recommendations, given the prevalence of disease in our region, it is our hospital?s policy to screen for HIV and viral Hepatitis for all patients aged 18 and over and those with ongoing risk factors. Elías Inquiry Pt receiving controlled substance: No Vital Signs: 03/13/24 13:03 Temperature 97.9 F Temperature Source Oral Pulse Rate [Left Radial] 58 L Respiratory Rate 13 Blood Pressure [Right Arm] 159/53 H Blood Pressure Mean [Right Arm] 88 02 Sat by Pulse Oximetry 96 Oxygen Delivery Method Room Air Lab Data Lab Results 03/13/24 14:38: Urine Color Yellow, Urine Appearance Clear, Urine pH 6.0, Ur Specific [place] >= 1.030, Urine Protein Negative, Urine Glucose (UA) Negative, Urine Ketones Negative, Urine Blood 1+ A, Urine Nitrate Negative, Urine Bilirubin Negative, Urine Urobilinogen 0.2, Ur Leukocyte Esterase 2+ A Orders (Tests/Meds): ORDERS Category Date Time Status CT chest wo con Stat Cat Scan 03/13/24 13:50 Taken XR forearm RT 2V Stat Exams 03/13/24 13:26 Taken HIV (1&2) Antibody Rapid Stat Lab 03/13/24 13:15 Ordered Hep C Ab with Reflex to RNA Stat Lab 03/13/24 13:15 Ordered UA [Urinalysis and Microscopic] Stat Lab 03/13/24 14:38 Results Urine Culture Stat Micro 03/13/24 14:38 Received Radiology Data #1: Image(s): Forearm Image Reviewed: Yes I reviewed the patient's radiology image Preliminary Findings: Normal/NAD and No Fracture Seen CT Data CT Scan: Chest Time Received: 12:[address] Reviewed: Yes I have reviewed the patient's CT results Preliminary Findings: Normal/NAD US Data ED US Reviewed: Yes I have reviewed the patient's US results Medical Decision Narrative: In summary patient is a 78-year-old female who presents to the emergency department for evaluation of rib and arm pain status post fall. Patient is hemodynamically stable upon arrival, afebrile. Unremarkable physical exam, noted bruising to right upper rib. Differential diagnosis includes fracture, contusion, strain. Initial workup will be conducted with chest CT without contrast, x-ray. Initial inventions include CT noncontrast and x-rays negative. Initial workup reviewed by me CT chest and x-ray of the forearm negative. Upon repeat evaluation patient sitting up in the chair reading a book. Given this patient appropriate for discharge at this time will discharge home. While discharging patient she then asked if she could also be seen for a UTI, patient states she has been taking Bactrim but feels like is not improved any of her symptoms. Sent home on Omnicef stop Bactrim. I informally interpreted patient's CT and is negative Critical Care Critical Care Time Critical Care Time: No
--- NOTE | 2024-03-13 13:50 | CT_ITS ---
PROCEDURE INFORMATION: Exam: CT Chest Without Contrast; Diagnostic Exam date and time: 03/13/2024 1:59 PM Age: 78 years old Clinical indication: Injury or trauma; Fall; Blunt trauma (contusions or hematomas) TECHNIQUE: Imaging protocol: Diagnostic computed tomography of the chest without contrast. Total images: 447 Radiation optimization: All CT scans at this facility use at least one of these dose optimization techniques: automated exposure control; mA and/or kV adjustment per patient size (includes targeted exams where dose is matched to clinical indication); or iterative reconstruction. COMPARISON: CT ANGIO CHEST 01/17/2019 5:03 PM FINDINGS: Limitations: Examination limited by the lack of IV contrast. Lungs: Atelectatic changes noted within both lung bases. Pleural spaces: No evidence of pneumothorax. No pleural effusions. Heart: Heart demonstrates mild diffuse enlargement. Coronary arteries: There is mild atherosclerotic calcification of the coronary arteries. Lymph nodes: Unremarkable. No enlarged lymph nodes. Vasculature: Mild atherosclerotic disease. Liver: Granulomatous calcification noted within the liver. Bones/joints: The thoracic spine demonstrates mild degenerative changes at multiple levels. No evidence of acute fracture. Soft tissues: Unremarkable. IMPRESSION: 1. Atelectatic changes noted within both lung bases. 2. No evidence of acute fracture. 3. Mild cardiomegaly.
[2024-03-13 14:48] LABS: Microscopic, Urine URINE MICROSCOPIC (MICROSCOPIC)
[2024-03-13 14:51] LABS: Appearance,Urine CLEAR (Clear); Bilirubin,Urine Negative (Negative); Blood, Urine 1+ (Negative); Color,Urine YELLOW (Yellow); Glucose,Urine (UA) Negative (Negative); Ketones,Urine Negative (Negative); Leukocyte Esterase,Urine 2+ (Negative); Nitrate,Urine Negative (Negative); Protein,Urine Negative (Negative); Specific Gravity, Urine >= 1.030 (1.005-1.030); Urobilinogen,Urine 0.2 EU/dl (0.2)
[2024-03-13 15:12] LABS: Squamous Epithelial Cell,Urine Occasional #/hpf (0-5); WBC,Urine 20-50 #/hpf (0-3)
[2024-03-13 15:32] VITALS: BP 148/63; PULSE 62; RESP 16; TEMP 36.6
== END 2024-03-13 15:33 | disposition home or self-care (01) ==
PROVIDERS: Emergency Provider Student in an Organized Health Care Education/Training Program; PCP Nurse Practitioner
DX: N39.0 Urinary tract infection, site not specified (principal); T14.8XXA Other injury of unspecified body region, initial encounter; M54.50 Low back pain, unspecified; R07.82 Intercostal pain; W01.0XXA Fall on same level from slipping, tripping and stumbling without subsequent striking against object, initial encounter; Y93.89 Activity, other specified; Y92.008 Other place in unspecified non-institutional (private) residence as the place of occurrence of the external cause
CPT/HCPCS: 71250; 73090; 81001; 87086; 99284